=== PATIENT | female | born 1970 | race Caucasian/White ===

== ENCOUNTER 2016-08-17 15:04 | Emergency (ER) | payer OTHER ==
[~2016-08-17] VITALS: Wt 53.0 kg
[2016-08-17 16:41] LABS: URINE BLOOD (Dip) POC Negative (NEGATIVE)
[2016-08-17] MEDS ORDERED: PHEN-538 PO (16:53)
[2016-08-17] MEDS ORDERED: CEPH-443 PO (16:53)
--- NOTE | 2016-08-17 16:55 | ERD ---
ER Documentation Chief Complaint Date/Time DATE: 08/17/16 TIME: 16:54 Chief Complaint LOWER ABDOMINAL PAIN WITH DYSURIA SINCE THIS MORNING. PAIN IS WORSE HPI This 46-year-old female presents with suprapubic abdominal pain and dysuria starting this morning. She denies fevers, vomiting, right or left-sided pain or upper abdominal pain. She never had a UTI before. She denies vaginal discharge or bleeding. ROS All systems reviewed and are negative except as per history of present illness. Medications Home Meds Active Scripts Phenazopyridine Hcl* (Pyridium*) 200 Mg Tab, 200 MG PO TID Y for URINARY PAIN, # 6 TAB Prov:OVI SINGH MD 08/17/16 Cephalexin* (Keflex*) 500 Mg Capsule, 500 MG PO QID for 5 Days, CAP Prov:OVI SINGH MD 08/17/16 Allergies Allergies: Coded Allergies: No Known Allergies (Verified Allergy, Unknown, 08/17/16) PMhx/Soc History of Surgery: Yes ([id number]) Anesthesia Reaction: No Hx Neurological Disorder: No Hx Respiratory Disorders: No Hx Cardiac Disorders: No Hx Psychiatric Problems: No Hx Miscellaneous Medical Probl: No Hx Alcohol Use: No Hx Substance Use: No Hx Tobacco Use: No Smoking Status: Never smoker Physical Exam Vitals Vital Signs Date Time Temp Pulse Resp B/P Pulse Ox O2 Delivery O2 Flow Rate FiO2 08/17/16 15:29 98.6 74 21 107/50 100 Physical Exam Const: [] Alert, [id number]. Head: Atraumatic Eyes: Normal Conjunctiva ENT: Normal External Ears, Nose and Mouth. Neck: Full range of motion..~ No meningismus. Resp: Clear to auscultation bilaterally Cardio: Regular rate and rhythm, no murmurs Abd: Soft, mild suprapubic tenderness. non distended. Normal bowel sounds Skin: No petechiae or rashes Back: No midline or flank tenderness Ext: No cyanosis, or edema Neur: Awake and alert Psych: Normal Mood and Affect Results 24 hrs Laboratory Tests Test 08/17/16 16:42 Bedside Urine Blood Negative Bedside Urine Glucose (UA) Negative Bedside Urine Ketones (LAB) Negative Bedside Urine Leukocyte Esterase (L Trace Bedside Urine Nitrite (LAB) Negative Bedside Urine Protein (LAB) Negative Bedside Urine pH (LAB) 6.0 Current Medications Medications (Trade) Dose Ordered Sig/Shivani Route PRN Reason Start Time Stop Time Status Last Admin Dose Admin Cephalexin (Keflex) 500 mg ONCE ONCE PO 08/17/16 17:00 08/17/16 17:01 Phenazopyridine HCl (Pyridium) 200 mg ONCE ONCE PO 08/17/16 17:00 08/17/16 17:01 Procedures/MDM HCG is negative. Urine shows positive leukocytes without nitrites, hemoglobin, glucose. Patient has signs and symptoms of suprapubic pain with dysuria and signs of UTI. Signs and symptoms not consistent with appendicitis, acute abdomen, appendicitis, sepsis. She will be treated with Keflex and Pyridium at home and further observation. The patient was stable with no new complaints during the ER course. Clinically, there is no current evidence to suggest meningitis, sepsis, acute abdomen, pneumonia, acute coronary syndrome, pulmonary embolism, or any other emergent condition appearing to require further evaluation or hospitalization. The patient should certainly return for any new or worsening symptoms per the aftercare instructions. They should otherwise follow-up with her primary care doctor for reevaluation this week. Departure Diagnosis: Primary Impression: UTI (urinary tract infection) Urinary tract infection type: acute cystitis Hematuria presence: without hematuria Qualified Code: N30.00 - Acute cystitis without hematuria Additional Impression: Abdominal pain Abdominal location: lower abdomen, unspecified Qualified Code: R10.30 - Lower abdominal pain Condition: Stable Patient Instructions: Abdominal Pain, Understanding Urinary Tract Infections ( UTIs) Additional Instructions: Symptoms that appear to be likely due to urine infection. Recheck for fevers, vomiting, worsening pain or migration to the right or left. See primary doctor for follow-up as scheduled. OVI SINGH MD Aug 17, 2016 16:55
[2016-08-17] MEDS ORDERED: CEPHALEXIN 500 MG CAP PO ONE (17:00)
[2016-08-17] MEDS ORDERED: PHENAZOPYRIDINE 100 MG TAB PO ONE (17:00)
== END 2016-08-17 17:15 | disposition home or self-care (01) ==
LOC: FTE 15:04
DX: N30.00 Acute cystitis without hematuria (principal); R10.2 Pelvic and perineal pain
CPT/HCPCS: 81003; Z7502; Z7610; 99283

== ENCOUNTER 2017-02-01 05:41 | Observation (INO) | payer OTHER ==
[2017-01-31 10:30] VITALS: Ht 152.4 cm; Wt 52.8 kg
[~2017-02-01] VITALS: Ht 152.4 cm; Wt 52.8 kg
[2017-02-01] VITALS (18 sets, daily range): BP systolic 93–117; BP diastolic 40–58; PULSE 46–76; RESP 13–51
[~2017-02-01 05:41] MED LIST: CEPH-443 PO; PHEN-538 PO
[2017-02-01] MEDS ORDERED: CEFAZOLIN 2 GM/50 ML (PMX) 50 ML IVPB ONE (06:33)
[2017-02-01] MEDS ORDERED: metroNIDAZOLE 500 MG/NS (PMX) 100 ML IVPB ONE ×2 (06:34→08:54)
[2017-02-01] MEDS ORDERED: D5-NS + KCL 20 MEQ 1,000 ML IV SCH (06:34)
[2017-02-01] MEDS ORDERED: VASOPRESSIN 20 UNITS INJ ONE (07:03)
[2017-02-01] MEDS ORDERED: METHYLENE BLUE 1% 10 ML INJ ONE (07:03)
[2017-02-01] MEDS ORDERED: FENTAnyl 50 MCG/ML VIAL ONE (07:28)
--- NOTE | 2017-02-01 08:24 | HP ---
Date/Time of Note Date/Time of Note DATE: 02/01/17 TIME: 08:24 Assessment/Plan VTE Prophylaxis VTE Prophylaxis Intervention: SCD's Lines/Catheters IV C[facility]ter Type (from [facility]): Peripheral IV HPI/ROS Admit Date/Time Admit Date/Time Feb 01, 2017 at 05:41 Hx of Present Illness Beth Castro M.D. . [facility] History and Physical Examination Rosalind Wilkins Date:Jan 04, 2017 :1970 Age: 46 Physicians: Rn Resource Nurse Nutrition Consultant Oncologist Referring MD: Luigi Cano History of the Present Illness: A 46 year old female with a gradually increasing pelvic mass. The mass is complex and consistent with growing fibroids and a positive PET/CT. Medical history/ROS: all other systems unremarkable. Surgical history: no significant abdominal procedures. Medications: gardisil Allergies: No active allergies recorded Family Hx: non-contributary Social HX: non-contributary ROS: as above Colonoscopy Physical Examination Vitals (01/04/2017): Weight 123, Height 60.5, BP 120/60, BMI 24.0. General: Alert. HEENT: Pupils are equal, round, reactive to light and accommodation. Neck: Supple with no masses of lymphadenopathy. Breast: Deferred due to recent examination and responsibility of primary care physician. Chest: Clear to auscultation Heart: Normal rhythm with no murmur. Abdomen: Non tender, no ascites nor organomeglay. Pelvic exam: Enlarged irregualr tender uterus, no masses or cul-de-sac nodularity noted Rectal: confirmatory with pelvic exam. Neurological: Grossly intact Assessment: Pelvic-abdominal mass Plan: TLH possible BSO, possible UD , possible LND, possible open . All risks and benefits of this procedure have been discussed in detail with the patient, as well as alternative treatment strategies and their implications. The patient is aware that there is some possibility of a blood transfusion and its associated risks and benefits. She wishes to proceed and gives her informed consent. Beth Castro M.D. PMH/Family/Social Social History Smoking Status: Never smoker Exam/Review of Systems Vital Signs Vitals Vital Signs Date Time Temp Pulse Resp B/P Pulse Ox O2 Delivery O2 Flow Rate FiO2 02/01/17 06:37 97.0 61 20 93/40 100 Room Air Medications Medications Current Medications Potassium Chloride/Dextrose/ Sod Cl (D5-NS + KCl 20 Meq) 1,000 ml @ 100 mls/hr Q10H IV ; Start 02/01/17 at 06:34; Stop 02/01/17 at 16:33 BETH CASTRO MD Feb 01, 2017 08:24
--- NOTE | 2017-02-01 08:25 | HPN ---
Date/Time of Note Date/Time of Note DATE: 02/01/17 TIME: 08:25 Interval H&P Admission Note Pt. seen H&P reviewed: No system changes BETH CASTRO MD Feb 01, 2017 08:25
[2017-02-01] MEDS ORDERED: morphine SULFATE/PF (10 MG/10 ML) INJ ONE (08:50)
[2017-02-01] MEDS ORDERED: ROPIVACAINE 0.2% 20 ML VIAL ONE (08:50)
[2017-02-01] MEDS ORDERED: PROPOFOL 20 ML ONE (08:54)
[2017-02-01] MEDS ORDERED: SUCCINYLCHOLINE CHLORIDE 100 MG/5 ML SYG IV ONE (08:54)
[2017-02-01] MEDS ORDERED: ROCURONIUM 50 MG INJ ONE (08:54)
[2017-02-01] MEDS ORDERED: LIDOCAINE 2% (SDV) 5 ML INJ ONE (08:54)
[2017-02-01] MEDS ORDERED: CEFAZOLIN 1 GM INJ ONE (08:54)
[2017-02-01] MEDS ORDERED: HYDROmorphONE (0.2 MG/ML) 10ML SYG IV PRN (09:30)
[2017-02-01] MEDS ORDERED: HYDROmorphONE 1 MG/ML SYG IV PRN ×2 (09:30)
[2017-02-01] MEDS ORDERED: ONDANSETRON 4 MG INJ IV PRN ×2 (09:30)
[2017-02-01] MEDS ORDERED: NALOXONE (0.4 MG/ML) INJ IV PRN (09:30)
[2017-02-01] MEDS ORDERED: MEPERIDINE 25 MG INJ IV PRN (09:30)
[2017-02-01] MEDS ORDERED: DIPHENHYDRAMINE 50 MG INJ IV PRN ×2 (09:30)
[2017-02-01] MEDS ORDERED: METOCLOPRAMIDE 10 MG INJ IV PRN (09:30)
[2017-02-01] MEDS ORDERED: PROCHLORPERAZINE 10 MG INJ IV PRN (09:30)
[2017-02-01] MEDS ORDERED: THROMBIN 5000 UNIT VIAL ONE (09:43)
[2017-02-01] MEDS ORDERED: SUGAMMADEX SODIUM 200 MG/2 ML VIAL IV ONE (11:37)
[2017-02-01] MEDS: FENTAnyl 50 MCG/ML VIAL IV PRN ×2 (12:09→12:15)
[2017-02-01] MEDS: HYDROmorphONE (0.2 MG/ML) 10ML SYG IV PRN ×5 (12:26→14:08)
[2017-02-01] MEDS ORDERED: morphine 2 MG INJ IV PRN (12:30)
[2017-02-01] MEDS ORDERED: CEFAZOLIN 1 GM in SOD CHLORIDE 0.9% 100 ML IVPB SCH (12:30)
[2017-02-01 13:16] LABS: CALCIUM 7.6 mg/dl (8.4-10.2); CREATININE 0.63 mg/dl (0.44-1.00); POTASSIUM 3.6 mmol/L (3.5-5.1)
[2017-02-01] MEDS: CEFAZOLIN 1 GM/50 ML (PMX) 50 ML IVPB SCH ×2 (14:03→21:28)
[2017-02-01] MEDS: POTASSIUM CHLORIDE 20 MEQ in LACTATED RINGER'S 1,000 ML IV SCH (17:57)
--- NOTE | 2017-02-01 18:09 | HP ---
Date/Time of Note Date/Time of Note DATE: 02/01/17 TIME: 17:32 Assessment/Plan VTE Prophylaxis VTE Prophylaxis Intervention: SCD's Lines/Catheters IV Catheter Type (from Nrs): Peripheral IV Urinary Cath still in place: Yes Reason Cath still needed: urinary retention Assessment/Plan Assessment/Plan - Gradually increasing pelvic mass- complex and consistent with growing fibroids and a positive PET/CT. - Status post total laparoscopic hysterectomy by on 02/01/2017 -Follow surgical recommendations-advance diet per surgery -Cefazolin per post postop protocol -Continue IV fluids -Incentive spirometer while awake -Pain controlled with morphine, Toradol, [place] -Zofran for nausea -Monitor intake and output -Monitor vitals -Monitor for any signs and symptoms of infection - Asthma-no acute issues -Status post 1 -SCDs for DVT prophylaxis -Protonix for GI prophylaxis Further recommendations depend on patient's clinical course. Plan of care discussed with mother. Plan of care discussed with Dr. Boss, staff. HPI/ROS Admit Date/Time Admit Date/Time Feb 01, 2017 at 05:41 ROS HPI: A 46 year old female with a gradually increasing pelvic mass. The mass is complex and consistent with growing fibroids and a positive PET/CT. Patient is a postoperative pain. patient is admitted under Dr. Boss after surgery. Patient's mother at the bedside all questions answered. During assessment patient seems comfortable lethargic, goes back to sleep when called. Per mother- complains of nausea and vomiting Zofran given by the staff feels better. No chest pain, shortness breath, fever reported. No dizziness, palpitations, headache, blurry vision reported . no focal weakness or numbness reported. Complaint of surgical pain, complain of nausea vomiting. We will follow the surgical recommendations. Will hold off to all p.o. medications until patient is stable. Patient is admitted to MedSurg floor under Dr. Boss. Remains on IV fluids. Allergies: No known allergies ROS: All systems are normal except as mentioned in HPI Respiratory: no complaints Cardiovascular: no complaints Gastrointestinal: no complaints Genitourinary: other (sp surgey- surgical pain) Musculoskeletal: no complaints PMH/Family/Social Past Medical History ASTHMA Surgical history: - Colonoscopy, C-SECTOIN X 1 Family Hx: non-contributory Social HX: non-contributory Past Surgical History Past Surgical Hx: noncontributory Family History Significant Family History: no pertinent family hx Social History Alcohol Use: none Smoking Status: Never smoker Exam/Review of Systems Vital Signs Vitals Vital Signs Date Time Temp Pulse Resp B/P Pulse Ox O2 Delivery O2 Flow Rate FiO2 02/01/17 15:25 97.6 53 18 111/54 99 02/01/17 14:18 Nasal Cannula 2.0 Exam Constitutional: alert, well developed Psych: nl mood/affect Respiratory: clear to auscultation, normal air movement Cardiovascular: nl pulses, regular rate and rhythm Gastrointestinal: non-tender, other (Hypoactive bowel sounds), soft Genitourinary - Male: other (sp surgery) Musculoskeletal: nl extremities to inspection Extremities: normal pulses Neurological: other (sleepy as fresh post op) Labs Result Diagram: 02/01/17 1244 Medications Medications Current Medications Potassium Chloride/Dextrose/ Sod Cl (D5-NS + KCl 20 Meq) 1,000 ml @ 100 mls/hr Q10H IV ; Start 02/01/17 at 06:34; Stop 02/01/17 at 16:33 Naloxone HCl (Narcan) 0.1 mg Q2M PRN IV FOR RESP RATE 8 OR LESS; Start at 09:30; Stop 02/01/17 at 18:00 Hydromorphone HCl (Dilaudid) 0.2 mg Q3H PRN IV PAIN LEVEL 1-5; Start 02/01/17 at 09:30; Stop 02/01/17 at 18:00 Hydromorphone HCl (Dilaudid) 0.4 mg Q3H PRN IV PAIN LEVEL 6-10; Start 02/01/17 at 09:30; Stop 02/01/17 at 18:00 Diphenhydramine HCl (Benadryl) 25 mg Q6H PRN IV ITCHING; Start 02/01/17 at 09: 30; Stop 02/01/17 at 18:00 Ondansetron HCl (Zofran Inj) 4 mg Q6H PRN IV NAUSEA AND/OR VOMITING; Start at 09:30; Stop 02/01/17 at 18:00 Prochlorperazine (Compazine Inj) 10 mg ONCE PRN IV NAUSEA AND/OR VOMITING; Start 02/01/17 at 09:30; Stop 02/01/17 at 18:00 Morphine Sulfate (morphine) 2 mg Q2H PRN IV PAIN LEVEL 6-10; Start 02/01/17 at 12:30 Acetaminophen/ Hydrocodone Bitart ([place] (5/325)) 1 tab Q6H PRN PO PAIN LEVEL 6 -10; Start 02/01/17 at 12:30 Ketorolac Tromethamine (Toradol) 15 mg Q6H PRN IV PAIN; Start 02/01/17 at 12:30 ; Stop 02/04/17 at 12:29 Ondansetron HCl (Zofran Inj) 4 mg Q6H PRN IV NAUSEA AND/OR VOMITING; Start at 12:30 Famotidine 20 mg 20 mg Q12 IV ; Start 02/01/17 at 21:00 Potassium Chloride 20 meq/ Lactated Ringer's 1,010 ml @ 100 mls/hr Q10H6M IV ; Start 02/01/17 at 15:00 Cefazolin Sodium (Ancef 1 Gm/50 ml (Pmx)) 50 ml @ 100 mls/hr Q8 IVPB Last administered on 02/01/17t 14:03; Admin Dose 100 MLS/HR; Start 02/01/17 at 14:00 ; Stop 02/02/17 at 06:29 DUSTIN TAYLOR Feb 01, 2017 17:46
[2017-02-01] MEDS: ONDANSETRON 4 MG INJ IV PRN (21:28)
[2017-02-01] MEDS: FAMOTIDINE 20 MG INJ IV SCH (21:28)
[2017-02-02] MEDS: KETOROLAC 15 MG INJ IV PRN ×2 (00:17→05:48)
[2017-02-02] MEDS: POTASSIUM CHLORIDE 20 MEQ in LACTATED RINGER'S 1,000 ML IV SCH ×3 (01:06→11:12)
[2017-02-02] MEDS: ONDANSETRON 4 MG INJ IV PRN (04:09)
[2017-02-02 04:15] VITALS: BP 99/48; PULSE 53; RESP 18
[2017-02-02] MEDS: CEFAZOLIN 1 GM/50 ML (PMX) 50 ML IVPB SCH (05:48)
[2017-02-02 06:08] LABS: ADD SCAN DIFF NO
[2017-02-02 06:40] LABS: INR 1.11; PROTIME 14.3 Sec (12.2-14.2); PT RATIO 1.1
[2017-02-02 06:52] LABS: CALCIUM 8.4 mg/dl (8.4-10.2); CREATININE 0.65 mg/dl (0.44-1.00); POTASSIUM 3.9 mmol/L (3.5-5.1)
[2017-02-02 07:43] VITALS: BP 87/44; RESP 16
[2017-02-02] MEDS: FAMOTIDINE 20 MG INJ IV SCH ×2 (08:44→21:07)
[2017-02-02 09:00] VITALS: BP 100/50; PULSE 53; RESP 18
[2017-02-02 09:04] LABS: BASOPHILS % 0.1 % (0.0-2.0); EOSINOPHILS % 0.1 % (0.0-7.0); HEMATOCRIT 27.2 % (37.0-47.0); HEMOGLOBIN 8.5 g/dl (12.0-16.0); LYMPHOCYTES # 1.4 10^3/ul (0.8-2.9); LYMPHOCYTES % 19.6 % (15.0-51.0); MEAN CORPUSCULAR HEMOGLOBIN 28.8 pg (29.0-33.0); MEAN CORPUSCULAR HGB CONC 31.3 g/dl (32.0-37.0); MEAN CORPUSCULAR VOLUME 92.2 fl (82.0-101.0); MEAN PLATELET VOLUME 11.8 fl (7.4-10.4); MONOCYTE # 0.8 10^3/ul (0.3-0.9); MONOCYTES % 10.3 % (0.0-11.0); NEUTROPHIL # 5.1 10^3/ul (1.6-7.5); NEUTROPHILS % 69.6 % (39.0-77.0); PLATELET COUNT 144 10^3/UL (140-415); RED BLOOD COUNT 2.95 10^6/ul (4.20-5.40); RED CELL DISTRIBUTION WIDTH 15.3 % (11.5-14.5); WHITE BLOOD COUNT 7.3 10^3/ul (4.8-10.8)
--- NOTE | 2017-02-02 13:50 | PN ---
Date/Time of Note Date/Time of Note DATE: 02/02/17 TIME: 13:47 Assessment/Plan VTE Prophylaxis VTE Prophylaxis Intervention: SCD's Lines/Catheters IV Catheter Type (from Nrs): Peripheral IV Urinary Cath still in place: No Assessment/Plan Chief Complaint/Hosp Course fibroids Problems: Assessment/Plan doing well. adv diet and possibe d/c Subjective 24 Hr Interval Summary Free Text/Dictation Patricia diet and OOB marginally Exam/Review of Systems Vital Signs Vitals Vital Signs Date Time Temp Pulse Resp B/P Pulse Ox O2 Delivery O2 Flow Rate FiO2 02/02/17 10:40 99.2 02/02/17 09:00 53 18 100/50 96 Room Air 02/01/17 20:57 2.0 Intake and Output 02/01/17 02/01/17 02/02/17 15:00 23:00 07:00 Intake Total 2000 ml 50 ml 1290 ml Output Total 1375 ml 200 ml 450 ml Balance 625 ml -150 ml 840 ml Exam Resp- clear CVS- NSR Abd- soft NT Ext- NT no edema Results Result Diagram: 02/02/17 0553 02/02/17 0553 Results 24 hrs Laboratory Tests Test 02/02/17 05:53 02/02/17 07:34 White Blood Count 7.3 Red Blood Count 2.95 L Hemoglobin 8.5 L Hematocrit 27.2 L Mean Corpuscular Volume 92.2 Mean Corpuscular Hemoglobin 28.8 L Mean Corpuscular Hemoglobin Concent 31.3 L Red Cell Distribution Width 15.3 H Platelet Count 144 Mean Platelet Volume 11.8 H Neutrophils % 69.6 Lymphocytes % 19.6 Monocytes % 10.3 Eosinophils % 0.1 Basophils % 0.1 Nucleated Red Blood Cells % 0.0 Neutrophils # 5.1 Lymphocytes # 1.4 Monocytes # 0.8 Eosinophils # 0.0 Basophils # 0.0 Nucleated Red Blood Cells # 0.0 Prothrombin Time 14.3 H Prothrombin Time Ratio 1.1 INR International Normalized Ratio 1.11 Sodium Level 136 Potassium Level 3.9 Chloride Level 108 Carbon Dioxide Level 25 Anion Gap 7 L Blood Urea Nitrogen 11 Creatinine 0.65 Glucose Level 103 Calcium Level 8.4 Lab Scanned Report LAB Medications Medications Current Medications Morphine Sulfate (morphine) 2 mg Q2H PRN IV PAIN LEVEL 6-10; Start 02/01/17 at 12:30 Acetaminophen/ Hydrocodone Bitart ([place] (5/325)) 1 tab Q6H PRN PO PAIN LEVEL 6 -10; Start 02/01/17 at 12:30 Ketorolac Tromethamine (Toradol) 15 mg Q6H PRN IV PAIN Last administered on 05:48; Admin Dose 15 MG; Start 02/01/17 at 12:30; Stop 02/04/17 at 12:29 Ondansetron HCl (Zofran Inj) 4 mg Q6H PRN IV NAUSEA AND/OR VOMITING Last administered on 02/02/17 04:09; Admin Dose 4 MG; Start 02/01/17 at 12:30 Famotidine 20 mg 20 mg Q12 IV Last administered on 02/02/17 08:44; Admin Dose 20 MG; Start 02/01/17 at 21:00 Potassium Chloride/Lactated Ringer's (KCl/Lr) 1,010 ml @ 60 mls/hr [id number] IV Last administered on 02/02/17 04:09; Admin Dose 100 MLS/HR; Start 02/01/17 at 15:00 Acetaminophen (Tylenol Tab) 650 mg Q6H PRN PO PAIN AND OR ELEVATED TEMP; Start 02/02/17 at 14:00 BETH CASTRO MD Feb 02, 2017 13:49
[2017-02-02 13:53] VITALS: BP 126/59; RESP 20
[2017-02-02] MEDS ORDERED: ACETAMINOPHEN 325 MG TAB PO PRN (14:00)
--- NOTE | 2017-02-02 14:16 | CONS ---
Date/Time of Note Date/Time of Note DATE: 02/02/17 TIME: 14:13 Consultation Date/Type/Reason Admit Date/Time Feb 01, 2017 at 05:41 Initial Consult Date 02/02/17 Type of Consultation: Anesthesiology Reason for Consultation Follow up 24 HR Interval Summary Free Text/Dictation Pt seen and examined at bedside is POD#1 s/p Laprascopic Hysterectomy. Pt received an epidural with Duramorph injection for post op pain control. She is currently doing well and has minimal pain in the center of her c/s scar. No N/V/ D/C/BURNETT/Numbness in extremities. Will follow. Constitutional: improved, no complaints Exam/Review of Systems Vital Signs Vitals Vital Signs Date Time Temp Pulse Resp B/P Pulse Ox O2 Delivery O2 Flow Rate FiO2 02/02/17 13:53 97.7 60 20 126/59 100 02/02/17 09:00 Room Air 02/01/17 20:57 2.0 Intake and Output 02/01/17 02/01/17 02/02/17 15:00 23:00 07:00 Intake Total 2000 ml 50 ml 1290 ml Output Total 1375 ml 200 ml 450 ml Balance 625 ml -150 ml 840 ml Results Result Diagram: 02/02/17 0553 02/02/17 0553 Results 24 hrs Laboratory Tests Test 02/02/17 05:53 02/02/17 07:34 White Blood Count 7.3 Red Blood Count 2.95 L Hemoglobin 8.5 L Hematocrit 27.2 L Mean Corpuscular Volume 92.2 Mean Corpuscular Hemoglobin 28.8 L Mean Corpuscular Hemoglobin Concent 31.3 L Red Cell Distribution Width 15.3 H Platelet Count 144 Mean Platelet Volume 11.8 H Neutrophils % 69.6 Lymphocytes % 19.6 Monocytes % 10.3 Eosinophils % 0.1 Basophils % 0.1 Nucleated Red Blood Cells % 0.0 Neutrophils # 5.1 Lymphocytes # 1.4 Monocytes # 0.8 Eosinophils # 0.0 Basophils # 0.0 Nucleated Red Blood Cells # 0.0 Prothrombin Time 14.3 H Prothrombin Time Ratio 1.1 INR International Normalized Ratio 1.11 Sodium Level 136 Potassium Level 3.9 Chloride Level 108 Carbon Dioxide Level 25 Anion Gap 7 L Blood Urea Nitrogen 11 Creatinine 0.65 Glucose Level 103 Calcium Level 8.4 Lab Scanned Report LAB Medications Medications Current Medications Acetaminophen/ Hydrocodone Bitart ([place] (5/325)) 1 tab Q6H PRN PO PAIN LEVEL 6 -10; Start 02/01/17 at 12:30 Ondansetron HCl (Zofran Inj) 4 mg Q6H PRN IV NAUSEA AND/OR VOMITING Last administered on 02/02/17 04:09; Admin Dose 4 MG; Start 02/01/17 at 12:30 Famotidine 20 mg 20 mg Q12 IV Last administered on 02/02/17 08:44; Admin Dose 20 MG; Start 02/01/17 at 21:00 Potassium Chloride/Lactated Ringer's (KCl/Lr) 1,010 ml @ 60 mls/hr [id number] IV Last administered on 02/02/17 04:09; Admin Dose 100 MLS/HR; Start 02/01/17 at 15:00 Acetaminophen (Tylenol Tab) 650 mg Q6H PRN PO PAIN AND OR ELEVATED TEMP; Start 02/02/17 at 14:00 NANI SELLERS Feb 02, 2017 14:15
[2017-02-02] MEDS ORDERED: HYDR-906 PO (15:07)
--- NOTE | 2017-02-02 15:16 | PN ---
Date/Time of Note Date/Time of Note DATE: 02/02/17 TIME: 15:14 Assessment/Plan VTE Prophylaxis VTE Prophylaxis Intervention: SCD's Lines/Catheters IV [facility] Type (from [facility] Peripheral IV Urinary Cath still in place: No Assessment/Plan Assessment/Plan -Uterine fibroids, status post total laparoscopic hysterectomy by Dr. Che. -Asthma, continue breathing treatments. Further recommendations based on clinical course. Plan of care discussed with Dr. Boss. Exam/Review of Systems Vital Signs Vitals Vital Signs Date Time Temp Pulse Resp B/P Pulse Ox O2 Delivery O2 Flow Rate FiO2 02/02/17 13:53 97.7 60 20 126/59 100 02/02/17 09:00 Room Air 02/01/17 20:57 2.0 Intake and Output 02/01/17 02/01/17 02/02/17 15:00 23:00 07:00 Intake Total 2000 ml 50 ml 1290 ml Output Total 1375 ml 200 ml 450 ml Balance 625 ml -150 ml 840 ml Exam Constitutional: alert, oriented Psych: no complaints Eyes: nl conjunctiva Neck: supple Respiratory: normal air movement Cardiovascular: nl pulses Gastrointestinal: non-tender, soft Genitourinary - Female: other (Status post total laparoscopic hysterectomy) Extremities: normal pulses Neurological: nl mental status Skin: nl turgor Results Result Diagram: 02/02/17 0553 02/02/17 0553 Results 24 hrs Laboratory Tests Test 02/02/17 05:53 02/02/17 07:34 White Blood Count 7.3 Red Blood Count 2.95 L Hemoglobin 8.5 L Hematocrit 27.2 L Mean Corpuscular Volume 92.2 Mean Corpuscular Hemoglobin 28.8 L Mean Corpuscular Hemoglobin Concent 31.3 L Red Cell Distribution Width 15.3 H Platelet Count 144 Mean Platelet Volume 11.8 H Neutrophils % 69.6 Lymphocytes % 19.6 Monocytes % 10.3 Eosinophils % 0.1 Basophils % 0.1 Nucleated Red Blood Cells % 0.0 Neutrophils # 5.1 Lymphocytes # 1.4 Monocytes # 0.8 Eosinophils # 0.0 Basophils # 0.0 Nucleated Red Blood Cells # 0.0 Prothrombin Time 14.3 H Prothrombin Time Ratio 1.1 INR International Normalized Ratio 1.11 Sodium Level 136 Potassium Level 3.9 Chloride Level 108 Carbon Dioxide Level 25 Anion Gap 7 L Blood Urea Nitrogen 11 Creatinine 0.65 Glucose Level 103 Calcium Level 8.4 Lab Scanned Report LAB Medications Medications Current Medications Acetaminophen/ Hydrocodone Bitart ([place] (5/325)) 1 tab Q6H PRN PO PAIN LEVEL 6 -10; Start 02/01/17 at 12:30 Ondansetron HCl (Zofran Inj) 4 mg Q6H PRN IV NAUSEA AND/OR VOMITING Last administered on 02/02/17 04:09; Admin Dose 4 MG; Start 02/01/17 at 12:30 Famotidine 20 mg 20 mg Q12 IV Last administered on 02/02/17 08:44; Admin Dose 20 MG; Start 02/01/17 at 21:00 Potassium Chloride/Lactated Ringer's (KCl/Lr) 1,010 ml @ 60 mls/hr [id number] IV Last administered on 02/02/17 04:09; Admin Dose 100 MLS/HR; Start 02/01/17 at 15:00 Acetaminophen (Tylenol Tab) 650 mg Q6H PRN PO PAIN AND OR ELEVATED TEMP; Start 02/02/17 at 14:00 ANTON OLIVIER Feb 02, 2017 15:15
[2017-02-02 17:12] LABS: ADD SCAN DIFF NO
[2017-02-02 17:16] LABS: BASOPHILS % 0.3 % (0.0-2.0); EOSINOPHILS % 0.5 % (0.0-7.0); HEMATOCRIT 26.4 % (37.0-47.0); HEMOGLOBIN 8.3 g/dl (12.0-16.0); LYMPHOCYTES # 1.4 10^3/ul (0.8-2.9); MEAN CORPUSCULAR HEMOGLOBIN 28.3 pg (29.0-33.0); MEAN CORPUSCULAR HGB CONC 31.4 g/dl (32.0-37.0); MEAN CORPUSCULAR VOLUME 90.1 fl (82.0-101.0); MEAN PLATELET VOLUME 11.6 fl (7.4-10.4); MONOCYTE # 0.7 10^3/ul (0.3-0.9); MONOCYTES % 8.7 % (0.0-11.0); NEUTROPHIL # 5.7 10^3/ul (1.6-7.5); PLATELET COUNT 144 10^3/UL (140-415); RED BLOOD COUNT 2.93 10^6/ul (4.20-5.40); RED CELL DISTRIBUTION WIDTH 15.4 % (11.5-14.5); WHITE BLOOD COUNT 7.9 10^3/ul (4.8-10.8)
[2017-02-02 17:36] LABS: CALCIUM 8.8 mg/dl (8.4-10.2); CREATININE 0.6 mg/dl (0.44-1.00); POTASSIUM 4.4 mmol/L (3.5-5.1)
[2017-02-02 19:37] VITALS: BP 112/52; RESP 20
[2017-02-02] MEDS: HYDROCODONE/APAP (5/325) TAB PO PRN (21:08)
--- NOTE | 2017-02-02 21:29 | QN ---
Documentation Comment Given that H/H slightly down will transfuse and anticipate discharge tomorrow BETH ACSTRO MD Feb 02, 2017 21:29
[2017-02-03 02:00] VITALS: BP 111/56; RESP 20
[2017-02-03] MEDS: POTASSIUM CHLORIDE 20 MEQ in LACTATED RINGER'S 1,000 ML IV SCH ×2 (02:33→03:37)
[2017-02-03] MEDS: HYDROCODONE/APAP (5/325) TAB PO PRN ×2 (03:10→10:29)
[2017-02-03 08:04] VITALS: BP 102/57; RESP 20
[2017-02-03] MEDS: FAMOTIDINE 20 MG INJ IV SCH (09:00)
[2017-02-03] MEDS ORDERED: ALBUTEROL/IPRATROPIUM (NEB) 3 ML AMP HHN STA (09:28)
[2017-02-03] MEDS ORDERED: ALBUTEROL/IPRATROPIUM (NEB) 3 ML AMP HHN PRN (09:30)
--- NOTE | 2017-02-03 12:24 | PN ---
Date/Time of Note Date/Time of Note DATE: 02/03/17 TIME: 12:20 Assessment/Plan VTE Prophylaxis VTE Prophylaxis Intervention: SCD's Lines/Catheters IV Catheter Type (from Nrs): Peripheral IV Urinary Cath still in place: No Assessment/Plan Chief Complaint/Hosp Course fibroids Problems: Assessment/Plan A- clinically improved but CBC and BMP ordered hours ago has not been drawn P- can discharge iff labs and H/H stable. Nurse apparently asking for stat labs to be drawn that were ordered Subjective 24 Hr Interval Summary Free Text/Dictation + flatus and OOB and andrew soft diet Exam/Review of Systems Vital Signs Vitals Vital Signs Date Time Temp Pulse Resp B/P Pulse Ox O2 Delivery O2 Flow Rate FiO2 02/03/17 10:08 80 18 97 21 02/03/17 08:10 Nasal Cannula 2.0 02/03/17 08:04 98.4 102/57 Intake and Output 02/02/17 02/02/17 02/03/17 15:00 23:00 07:00 Intake Total 800 ml 510 ml 775 ml Output Total 300 ml 1500 ml Balance 500 ml 510 ml -725 ml Exam Resp- clear CVS- nsr Abd- mildly tender soft, clean Ext- nt Results Result Diagram: 02/02/17 1650 02/02/17 1650 Results 24 hrs Laboratory Tests Test 02/02/17 16:50 White Blood Count 7.9 Red Blood Count 2.93 L Hemoglobin 8.3 L Hematocrit 26.4 L Mean Corpuscular Volume 90.1 Mean Corpuscular Hemoglobin 28.3 L Mean Corpuscular Hemoglobin Concent 31.4 L Red Cell Distribution Width 15.4 H Platelet Count 144 Mean Platelet Volume 11.6 H Neutrophils % 72.0 Lymphocytes % 18.0 Monocytes % 8.7 Eosinophils % 0.5 Basophils % 0.3 Nucleated Red Blood Cells % 0.0 Neutrophils # 5.7 Lymphocytes # 1.4 Monocytes # 0.7 Eosinophils # 0.0 Basophils # 0.0 Nucleated Red Blood Cells # 0.0 Sodium Level 140 Potassium Level 4.4 Chloride Level 102 Carbon Dioxide Level 28 Anion Gap 14 # Blood Urea Nitrogen 10 Creatinine 0.60 Glucose Level 94 Calcium Level 8.8 Medications Medications Current Medications Acetaminophen/ Hydrocodone Bitart ([place] (5/325)) 1 tab Q6H PRN PO PAIN LEVEL 6 -10 Last administered on 02/03/17 10:29; Admin Dose 1 TAB; Start 02/01/17 at 12 :30 Ondansetron HCl (Zofran Inj) 4 mg Q6H PRN IV NAUSEA AND/OR VOMITING Last administered on 02/02/17 04:09; Admin Dose 4 MG; Start 02/01/17 at 12:30 Famotidine 20 mg 20 mg Q12 IV Last administered on 02/03/17 09:00; Admin Dose 20 MG; Start 02/01/17 at 21:00 Potassium Chloride/Lactated Ringer's (KCl/Lr) 1,010 ml @ 50 mls/hr [id number] IV Last administered on 02/03/17 02:33; Admin Dose 50 MLS/HR; Start 02/01/17 at 15 :00 Acetaminophen (Tylenol Tab) 650 mg Q6H PRN PO PAIN AND OR ELEVATED TEMP; Start 02/02/17 at 14:00 BETH CASTRO MD Feb 03, 2017 12:24
[2017-02-03 12:54] LABS: ADD SCAN DIFF NO
[2017-02-03 12:57] LABS: BASOPHILS % 0.2 % (0.0-2.0); EOSINOPHILS # 0.1 10^3/ul (0.0-0.5); EOSINOPHILS % 0.8 % (0.0-7.0); HEMATOCRIT 35.1 % (37.0-47.0); HEMOGLOBIN 11.3 g/dl (12.0-16.0); LYMPHOCYTES # 1.7 10^3/ul (0.8-2.9); LYMPHOCYTES % 18.8 % (15.0-51.0); MEAN CORPUSCULAR HGB CONC 32.2 g/dl (32.0-37.0); MEAN CORPUSCULAR VOLUME 90.2 fl (82.0-101.0); MONOCYTE # 0.6 10^3/ul (0.3-0.9); MONOCYTES % 6.8 % (0.0-11.0); NEUTROPHIL # 6.6 10^3/ul (1.6-7.5); PLATELET COUNT 189 10^3/UL (140-415); RED BLOOD COUNT 3.89 10^6/ul (4.20-5.40); RED CELL DISTRIBUTION WIDTH 15.2 % (11.5-14.5)
[2017-02-03 13:20] LABS: CALCIUM 9.3 mg/dl (8.4-10.2); CREATININE 0.66 mg/dl (0.44-1.00)
[2017-02-03 14:30] VITALS: BP 112/60; RESP 16
--- NOTE | 2017-02-03 14:45 | DS ---
Date/Time of Note Date/Time of Note DATE: 02/03/17 TIME: 14:45 Discharge Summary Admission/Discharge Info Admit Date/Time Feb 01, 2017 at 05:41 Discharge Date/Time Hx of Present Illness Kaushik Che M.D. . 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 The mass is complex and consistent with growing fibroids and a positive PET/CT. Medical history/ROS: all other systems unremarkable. Surgical history: no significant abdominal procedures. Medications: gardisil Allergies: No active allergies recorded Family Hx: non-contributary Social HX: non-contributary ROS: as above Colonoscopy Physical Examination Vitals (01/04/2017): Weight 123, Height 60.5, BP 120/60, BMI 24.0. General: Alert. HEENT: Pupils are equal, round, reactive to light and accommodation. Neck: Supple with no masses of lymphadenopathy. Breast: Deferred due to recent examination and responsibility of primary care physician. Chest: Clear to auscultation Heart: Normal rhythm with no murmur. Abdomen: Non tender, no ascites nor organomeglay. Pelvic exam: Enlarged irregualr tender uterus, no masses or cul-de-sac nodularity noted Rectal: confirmatory with pelvic exam. Neurological: Grossly intact Assessment: Pelvic-abdominal mass Plan: TLH possible BSO, possible UD , possible LND, possible open . All risks and benefits of this procedure have been discussed in detail with the patient, as well as alternative treatment strategies and their implications. The patient is aware that there is some possibility of a blood transfusion and its associated risks and benefits. She wishes to proceed and gives her informed consent. Kaushik Che M.D. Hospital Course fibroids Home Meds Active Scripts Hydrocodone/Acetaminophen ([place] 5-325 Tablet) 1 Each Tablet, 1 EACH PO Q4, #20 TAB Prov:ANTON OLIVIER 02/02/17 Discontinued Scripts Phenazopyridine Hcl* (Pyridium*) 200 Mg Tab, 200 MG PO TID Y for URINARY PAIN, # 6 TAB Prov:OVI SINGH MD 08/17/16 Cephalexin* (Keflex*) 500 Mg Capsule, 500 MG PO QID for 5 Days, CAP Prov:OVI SINGH MD 08/17/16 Primary Care Provider You Todd MD Pending Labs Laboratory Tests Test 02/02/17 16:50 02/03/17 12:35 White Blood Count 7.910^3/ul (4.8-10.8) 9.010^3/ul (4.8-10.8) Red Blood Count 2.9310^6/ul (4.20-5.40) 3.8910^6/ul (4.20-5.40) Hemoglobin 8.3g/dl (12.0-16.0) 11.3g/dl (12.0-16.0) Hematocrit 26.4% (37.0-47.0) 35.1% (37.0-47.0) Mean Corpuscular Volume 90.1fl (82.0-101.0) 90.2fl (82.0-101.0) Mean Corpuscular Hemoglobin 28.3pg (29.0-33.0) 29.0pg (29.0-33.0) Mean Corpuscular Hemoglobin Concent 31.4g/dl (32.0-37.0) 32.2g/dl (32.0-37.0) Red Cell Distribution Width 15.4% (11.5-14.5) 15.2% (11.5-14.5) Platelet Count 43918^3/UL (140-415) 68713^3/UL (140-415) Mean Platelet Volume 11.6fl (7.4-10.4) 12.0fl (7.4-10.4) Neutrophils % 72.0% (39.0-77.0) 73.0% (39.0-77.0) Lymphocytes % 18.0% (15.0-51.0) 18.8% (15.0-51.0) Monocytes % 8.7% (0.0-11.0) 6.8% (0.0-11.0) Eosinophils % 0.5% (0.0-7.0) 0.8% (0.0-7.0) Basophils % 0.3% (0.0-2.0) 0.2% (0.0-2.0) Nucleated Red Blood Cells % 0.0/100WBC (0.0-0.0) 0.0/100WBC (0.0-0.0) Neutrophils # 5.710^3/ul (1.6-7.5) 6.610^3/ul (1.6-7.5) Lymphocytes # 1.410^3/ul (0.8-2.9) 1.710^3/ul (0.8-2.9) Monocytes # 0.710^3/ul (0.3-0.9) 0.610^3/ul (0.3-0.9) Eosinophils # 0.010^3/ul (0.0-0.5) 0.110^3/ul (0.0-0.5) Basophils # 0.010^3/ul (0.0-0.1) 0.010^3/ul (0.0-0.1) Nucleated Red Blood Cells # 0.010^3/ul (0.0-0.0) 0.010^3/ul (0.0-0.0) Sodium Level 140mmol/L (135-144) 144mmol/L (135-144) Potassium Level 4.4mmol/L (3.5-5.1) 4.0mmol/L (3.5-5.1) Chloride Level 102mmol/L (97-110) 103mmol/L (97-110) Carbon Dioxide Level 28mmol/L (21-31) 28mmol/L (21-31) Anion Gap 14 (8-16) 17 (8-16) Blood Urea Nitrogen 10mg/dl (7-20) 7mg/dl (7-20) Creatinine 0.60mg/dl (0.44-1.00) 0.66mg/dl (0.44-1.00) Glucose Level 94mg/dl (70-220) 106mg/dl (70-220) Calcium Level 8.8mg/dl (8.4-10.2) 9.3mg/dl (8.4-10.2) DUSTIN TAYLOR Feb 03, 2017 14:45
--- NOTE | 2017-02-03 14:45 | PDOCDIS ---
Discharge Instructions HOME CARE INSTRUCTIONS: Diet Instructions: RegularSpecial Diet: soft ACTIVITY: Activity Restrictions: Slowly Increase Activity Rest between Activity Avoid heavy lifting No Sexual Activity Do not Drive Bathing Restrictions: Shower FOLLOW UP/APPOINTMENTS Follow-up Plan FU with PMD X 1week CALL 911 or go to the nearest hospital if symptoms get worsen DUSTIN TAYLOR Feb 03, 2017 14:44
[2017-02-03] MEDS ORDERED: HYDROCODONE/APAP (5/325) TAB PO ONE (15:15)
--- NOTE | 2017-02-04 21:04 | OPR ---
Date/Time of Note Date/Time of Note DATE: 02/04/17 TIME: 21:03 Operative Report Free Text/Dictation 1 OPERATIVE REPORT [facility] Name: Rosalind Wilkins Medical Date: 02/01/17 Preoperative Diagnosis: 1- Uterine enlargement with menorrhagia 2- Pelvic pain 3- PET/CT scan positive uterus/pelvic mass Postoperative Diagnosis: 1- Fibroids 2- Ureteral stricture: pathology pending 3- Hypervascularity Procedures: 1- Total laparoscopic hysterectomy bilateral salpingectomy 2- Bilateral ureteral dissection with repositioning 3-Bilateral retroperitoneal uterine artery ligation Surgeon: Dr. Che Hotbed Transfer Operator: FIDELIA Yoder Anesthesia: General Indication for Procedure: The patient is a 46 -year old female with a large pelvic/abdominal mass consistent with fibroids per history and examination and pelvic/abdominal pain and menorrhagia as well as a mass lighting up on PET/CT scan for whom, after considering all options with risks and benefits a laparoscopy was planned with a total laparoscopic hysterectomy with bilateral salpingectomy possible staging or laparotomy if needed. Findings and Summary The patient was laparoscoped and noted to have findings consistent of 14-16 week fibroids and hypervascularity and an expanded lower uterine segment with both adnexia adherent to the sidewalls and therefore requiring a ureteral dissection and repositioning bilaterally while gaining access to the uterine arteries. While completing the ureteral dissections and gaining access to the uterine arteries anatomic issues and hypervascularity necessitated that the uterine arteries be dissected and clipped laterally, adjacent to the hypogastric arteries bilaterally. The total laparoscopic hysterectomy with bilateral salpingectomy was then completed uneventfully. Procedure: After being prepped and draped in the usual manner the cervix was sutured with interrupted 0- Vicryl suture and an EEA sizer and pneumo-occluder was inserted vaginally was placed against the cervix. A 5-millimeter trocar was then placed cephlad to the umbilicus without incident. Subsequently, we insufflated to 15 mm Hg and placed two 5-millimeter trocars laterally and enterolysis was carried out with sharp dissection although the adhesions were very dense. In the process the small bowel was mobilized and subsequently a 12-millimeter trocar suprapubically. At this time any pelvic adhesions were lysed with sharp dissection and an Omni if not adjacent to serosa. Subsequently we explored and noted pelvic findings consistent with a 14-16 week fibroids with hypervascularity and an expanded lower uterine segment with both adnexia adherent to the sidewalls obscuring the retroperitoneal anatomy. Initially the right round ligament was cauterized and transected with the Thunderbeat and the retroperitoneal spaced opened parallel to the IP ligament an laterally with the same devise and Omni. The ureter was identified and because of pelvic scar tissue and the large fibroids and adnexia adherent to the sidewall required a specific dissection and repositioning. The ureter was bluntly dissected away from the broad ligament with an Omni and endo-dissector, and carefully repositioned lateral to the broad ligament and pathology and expanded lower uterine segment with fibroids. The process was continued distally due to some element of additional stricture. Due to vascularity and ongoing oozing as well as the large uterus the uterine artery was identified and clipped Name: [facility] lateral to the ureter, immediately distal to the branching of the hypogastric and at the bifurcation of the hypogastric; salvaging both observed superior and inferior vesicle while controlling the entire uterine with associated collateral branches. Hence, space was developed in the broad ligament and the triple pedicle was transected with a Thunderbeat. Subsequently the fallopian tube was removed from the mesentery with the Thunderbeat without incident and removed. At this time the sigmoid was dissected from the sidewall with sharp dissection and the Omni if not adjacent to serosa. The left round ligament was transected with the Thunderbeat and the retroperitoneal spaced opened parallel to the IP ligament and laterally with the same devise and Omni. The ureter was identified and because of similar anatomic issues to the contralateral side required a specific dissection and repositioning. The ureter was bluntly dissected away from the broad ligament bilaterally with an Omni and endo- dissector, and carefully repositioned lateral to the broad ligament and scar tissue with inflammation and with adjacent adnexia. Similarly, due to vascularity and ongoing oozing as well as the adjacent adherent adnexia and fibroid uterus the uterine artery was identified and clipped lateral to the ureter, immediately distal to the branching of the hypogastric and at the bifurcation of the hypogastric; salvaging both observed superior and inferior vesicle while controlling the entire uterine with associated collateral branches. Subsequently, space was developed in the broad ligament and the triple pedicle was transected with a Thunderbeat. Subsequently the fallopian tube was removed from the mesentery with the Thunderbeat without incident and removed. We then used a ratcheted endo-grasper placed through the 12-mm suprapubic trocar to manipulate the uterus allowing development or the bladder flap uneventfully with the Omni and Gyrus bipolar cutting forceps with blunt dissection. The right uterine artery was transected with a Thunderbeat perpendicular to the distal lower uterine segment and the Cardinal ligament and utero-sacral ligament were both transected with an Omni and Thunderbeat parallel to the lower uterine segment and cervix. An identical series of steps were taken on the contralateral side. Additional efforts were required to safely develop the cul-de- Name: [facility] Medical sac with sharp dissection laterally and the integrity of the sigmoid was confirmed with the EEA sizer. The anterior and posterior colpotomies were accomplished with a Thunderbeat instrument anteriorly and posteriorly, and continued around the sides as the specimen was kept in the abdomen due to size. The vagina was closed with interrupted 0- Vicryl suture and continuous 2-0 Stratafix. The 12-millimeter trocar site was minimally extended to 3-4 cm midline to a minilaparotomy with sharp dissection and an electrocautery and uterus was then placed in a 15-mm sac and removed with morcellation in the sac without incident using Clemencia clamps and a scalpel for morcellation, with all tissue accounted for with a negative frozen section was obtained consistent with a benign fibroid. The incision was partly closed with interrupted 0- Vicryl suture, after which the 12-millimeter trocar was reinserted. After irrigating and assuring hemostasis the 12 millimeter trocar was removed and the fascia was closed with 0-vicryl using an endo-close devise. The gas was removed and the skin of all sites then closed with interrupted 4-0 Plain Gut. The EBL was 100cc and the patient tolerated the procedure well and left the OR in good condition. Nydia Dean SCOTT M MD Feb 04, 2017 21:04
== END 2017-02-03 15:15 | disposition home or self-care (01) ==
LOC: REC 05:41 → INTOOBSV 05:41 → MS2 14:55
PROVIDERS: ATTEND Internal Medicine
DX: D25.1 Intramural leiomyoma of uterus (principal); D25.2 Subserosal leiomyoma of uterus; N80.0 Endometriosis of uterus; N72 Inflammatory disease of cervix uteri; N88.8 Other specified noninflammatory disorders of cervix uteri; N83.8 Other noninflammatory disorders of ovary, fallopian tube and broad ligament; N13.5 Crossing vessel and stricture of ureter without hydronephrosis; J45.909 Unspecified asthma, uncomplicated
CPT/HCPCS: 36430; 37617; 50715; 58573; 80048; 85025; 85610; 86850; 86900; 86901; 86920; 87086; 88104; 88305; 88307; 94664; J0690; J1170; J1885; J2175; J2274; J2405; J2795; J3010; J3480; J7120; J7999; P9016; Z7500; Z7512; Z7610; G0378